=== PATIENT | male | born 1990 | race African-American/Black ===

== ENCOUNTER 2017-02-04 16:09 | Emergency (ER) | payer SELFPAY ==
[~2017-02-04] VITALS: Ht 175.3 cm; Wt 77.1 kg
[2017-02-04] MEDS ORDERED: Tetanus/Diptheria/Pertussis Vaccine 0.5ml Syr IM ONE (16:30)
[2017-02-04] MEDS ORDERED: fentaNYL 100 mcg/2 mL IV ONE (16:30)
[2017-02-04 16:33] VITALS: BP 129/71
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
[2017-02-04] MEDS ORDERED: PERCOCET 5-3251 EACH ORAL (18:09)
[2017-02-04] MEDS ORDERED: BACITRACIN-POL1 EACH TOPIC (18:09)
[2017-02-04] MEDS ORDERED: Oxycodone/Acetaminophen 5-325 ORAL ONE ×2 (18:15→19:15)
[2017-02-04] MEDS ORDERED: Bacitracin Oint UD TOPIC ONE ×2 (19:22→19:30)
[2017-02-04 19:48] VITALS: BP 122/71
[2017-02-04 20:00] VITALS: BP 136/89
--- NOTE | 2017-02-05 09:14 | Diagnostic Imaging Report ---
Indication: Headache Technique: Contiguous 5 mm thick transaxial imaging of the head obtained in a Siemens Sensation [address] scanner. Soft tissue and bone windows generated. Total Dose length Product (DLP): [address] Dose Index Volume (CTDIvol): 70.38 mGy Comparison: none Findings: The size and configuration of the cortical sulci, basal cisterns, and ventricles are within normal limits for age. There is no mass effect, midline shift, or edema identified. There is no evidence of acute hemorrhage or abnormal intra-axial or extra-axial fluid collections. The bones and soft tissues are unremarkable. Impression: No mass effect, edema or acute bleed. The CT scanner at [facility] is accredited by the [employer] and the scans are performed using dose optimization techniques as appropriate to a performed exam including Automatic Exposure control.
--- NOTE | 2017-02-05 10:05 | Diagnostic Imaging Report ---
Indication: Chest pain Comparison: None A single view chest radiograph was obtained. Findings: Cardiomediastinal appearance is within normal limits for age. Pulmonary vascularity is appropriate. The diaphragmatic contour is smooth and costophrenic angles are sharp. No pleural effusions are identified. The bones are unremarkable. Impression: No acute findings
--- NOTE | 2017-02-05 10:07 | Diagnostic Imaging Report ---
Indication: Back pain Comparison: None Findings: 3 views of the lumbar spine were obtained. No acute fracture or malalignment is identified. Vertebral body heights and disk spaces are well maintained. Posterior elements are unremarkable. Impression: No acute findings.
--- NOTE | 2017-02-05 10:07 | Diagnostic Imaging Report ---
Indication: Chest pain. Comparison: None Findings: 4 views of the right chest wall was obtained for evaluation of the ribs. Bony mineralization appears normal. There is no acute fracture identified. There is no soft tissue swelling demonstrated. The lung is essentially clear. The costophrenic angle is sharp. Other osseous structures visualized are unremarkable. Impression: Negative unilateral rib series
--- NOTE | 2017-02-05 10:08 | Diagnostic Imaging Report ---
Indication: pain Findings: Single AP view of the pelvis was performed. No acute fracture is identified. Bone mineralization is within normal limits. Bilateral hips and sacroiliac joints appear symmetric.There is no malalignment. Soft tissues are unremarkable.
--- NOTE | 2017-02-05 10:08 | Diagnostic Imaging Report ---
Indication: Pain Comparison: None Findings: Two views of the left tibia and fibula were obtained. No acute fracture, malalignment, or periosteal reaction are identified. Soft tissues are unremarkable. Impression: Negative examination of the tibia and fibula
--- NOTE | 2017-02-05 10:09 | Diagnostic Imaging Report ---
Indication: Pain Comparison: None Findings: 3 views of the left ankle obtained. No acute fracture, malalignment, periostitis, or osteochondral defects are identified. Soft tissues are unremarkable. Impression: No acute findings
--- NOTE | 2017-02-05 11:33 | Diagnostic Imaging Report ---
Indication: Pain Comparison: None Findings: 3 views of the right ankle obtained. In the superolateral aspect of the talar dome there is a fracture noted. No malalignment is identified. Lateral soft tissue swelling is present. Impression: Acute lateral talar dome fracture.
== END 2017-02-04 22:43 | disposition home or self-care (01) ==
LOC: EMR 16:39
DX: S90.512A Abrasion, left ankle, initial encounter (principal); S90.511A Abrasion, right ankle, initial encounter; S80.812A Abrasion, left lower leg, initial encounter; S92.141A Displaced dome fracture of right talus, initial encounter for closed fracture; S40.212A Abrasion of left shoulder, initial encounter; S30.810A Abrasion of lower back and pelvis, initial encounter; V18.0XXA Pedal cycle driver injured in noncollision transport accident in nontraffic accident, initial encounter; Y93.55 Activity, bike riding; Y92.89 Other specified places as the place of occurrence of the external cause; Z23 Encounter for immunization; R51 Headache
CPT/HCPCS: 29515; 70450; 71010; 71100; 72020; 72170; 73590; 73610; 90471; 90715; 96372; 96374; 99284; J3010